=== PATIENT | female | born 2000 | race Caucasian/White ===

== ENCOUNTER 2022-05-21 22:37 | Emergency (ER) | payer OTHER, SELFPAY ==
[2022-05-21 22:37] VITALS: BP 155/96; PULSE 103; RESP 15; TEMP 36.3; O2SAT 100; BMI 32.5
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
== END 2022-05-21 23:49 | disposition home or self-care (01) ==
PROVIDERS: Emergency Provider Emergency Medicine; Visit Provider Emergency Medicine
DX: S06.0X0A Concussion without loss of consciousness, initial encounter (principal); V99.XXXA Unspecified transport accident, initial encounter
CPT/HCPCS: 99282